=== PATIENT | male | born 1940 | race African-American/Black ===

== ENCOUNTER 2016-04-09 15:35 | Emergency (ER) | payer MEDICARE ==
[2016-04-09 16:21] LABS: ALT (SGPT) 10 U/L (0-55); AST (SGOT) 18 U/L (5-34); Alkaline Phosphatase 72 U/L (40-150); Anion Gap 16 mmol/L (10-20); BUN (Urea Nitrogen) 12 mg/dL (8.4-25.7); Bilirubin, Total 0.3 mg/dL (0.2-1.2); CK (CPK) 39 U/L (30-200); Calc. Creatinine Clearance 0 mL/min (70-130); Calcium 8.5 mg/dL (7.8-10.44); Carbon Dioxide 20 mmol/L (23-31); Chloride 107 mmol/L (98-107); Estimated GFR-MDRD 60; Globulin 4.4 g/dL (2.4-3.5); Protein, Total 7.6 g/dL (5.8-8.1)
[2016-04-09 16:28] LABS: Troponin I Less than 0.010 ng/mL (< 0.028)
[2016-04-09 16:35] LABS: Band 4 % (5-11); Hematocrit 33.2 % (42.0-52.0); Mean Platelet Volume 4.4 fL (7.4-10.4); Neutrophil 55 % (42-75); Red Blood Cell (RBC) Count 4.29 mill/uL (4.70-6.10); White Blood Cell (WBC) Count 9.3 thou/uL (4.8-10.8)
[2016-04-09 16:38] LABS: Blood, Urine Negative (Negative); Glucose, Urine (Dipstick) Negative (Negative); Ketone, Urine 15 mg/dL (Negative); Nitrite Negative (Negative); Protein, Urine (Dipstick) > or equal to 300 mg/dL (Neg-Trace); Urobilinogen 0.2 mg/dL (0.2-1.0)
[2016-04-09 16:53] LABS: Bilirubin Negative (Negative)
[2016-04-09 16:58] LABS: Bacteria/HPF 3+ HPF (None Seen); RBC/HPF None Seen HPF (0-3); Squamous Epithelial 0-3 HPF (0-3); WBC/HPF None Seen HPF (0-3)
--- NOTE | 2016-04-09 17:11 | RAD ---
CHEST ONE VIEW 04/09/16 HISTORY: Cough. COMPARISON: Chest one view, 03/11/16. FINDINGS: The left shoulder is incompletely evaluated. This may be due to abnormal radiopacity projecting over the shoulder. Lungs are relatively clear. No large pneumothorax or effusion. The cardiac silhouette and mediastinal contours are similar. IMPRESSION: Large radiopacity projecting over the left shoulder which is not well evaluated and may be someone e lse's overlying hand and arm. No acute intrathoracic abnormality. POS: [facility]
== END 2016-04-09 17:08 | disposition home or self-care (01) ==
LOC: NAV ERS 15:35
DX: R56.9 Unspecified convulsions (principal); R78.5 Finding of other psychotropic drug in blood; E78.00 Pure hypercholesterolemia, unspecified; E78.5 Hyperlipidemia, unspecified; I10 Essential (primary) hypertension; F31.9 Bipolar disorder, unspecified
CPT/HCPCS: 51701; 71010; 80053; 80177; 81003; 81015; 82550; 82553; 84484; 85025; 93005